=== PATIENT | female | born 1995 | race African-American/Black ===

== ENCOUNTER 2017-10-06 02:46 | Inpatient (IN) | payer OTHER ==
[~2017-10-06 02:46] MED LIST: MOTRIN800 MG PO; PRENATAL TABLE1 EAC3 PO
[2017-10-06 03:01] LABS: BASOPHIL (%) 0.5 % (0-1); BASOPHIL COUNT 0.1 K/uL (0-0.1); EOSINOPHIL (%) 0.6 % (0-5); EOSINOPHIL COUNT 0.1 K/uL (0-0.3); HEMATOCRIT 42.3 % (36.0-46.0); HEMOGLOBIN 15.7 G/DL (11.9-15.5); IMMATURE GRANULOCYTE (%) 0.7 % (0.0-0.7); LYMPHOCYTE (%) 39.2 % (15-42); LYMPHOCYTE COUNT 4.9 K/uL (1.0-2.8); MCH 34.5 PG (29.0-34.0); MCHC 37.1 G/DL (30.0-36.0); MONOCYTE (%) 5.4 % (3-12); MONOCYTE COUNT 0.7 K/uL (0-0.8); NEUTROPHIL (%) 53.6 % (45-76); NEUTROPHIL COUNT 6.8 K/uL (1.8-6.4); RED BLOOD COUNT 4.55 M/uL (3.80-5.20); WHITE BLOOD COUNT 12.6 K/uL (4.1-10.2)
[2017-10-06 03:10] LABS: AMYLASE 75 IU/L (1-118); CHLORIDE 109 mEq/L (99-109); POTASSIUM 3.6 mEq/L (3.7-5.4); SODIUM 140 mEq/L (136-147)
[2017-10-06 03:12] LABS: GLUCOSE 102 mg/dL (70-99)
[2017-10-06 03:15] LABS: SERUM ETHYL ALCOHOL 181 mg/dL
[2017-10-06 03:16] LABS: CREATININE 0.9 mg/dL (0.6-1.3); GFR ESTIMATE (CALCULATED) > 59 mL/min/
[2017-10-06 03:17] LABS: UREA NITROGEN (BUN) 9 mg/dL (9-23)
[2017-10-06 03:19] LABS: LIPASE 29 U/L (1.0-51.0)
[2017-10-06 03:25] LABS: QUANTITATIVE HCG < 4.0 MIU/ML
[2017-10-06 05:00] LABS: PLAT.SUFFICIENCY ADEQUATE; PLATELET COUNT 306 K/uL (156-360)
[2017-10-06 11:30] LABS: APPEARANCE CLEAR ((CLEAR)); BILIRUBIN NEGATIVE; BLOOD MODERATE; COLOR YELLOW ((YELLOW)); GLUCOSE (STRIP) NEGATIVE; KETONES 20; LEUKOCYTES NEGATIVE; NITRITE NEGATIVE; PROTEIN (STRIP) 30; SPECIFIC GRAVITY 1.049 (1.000-1.030)
[2017-10-06 11:35] LABS: BACTERIA NONE SEEN /HPF; EPITHELIAL CELLS 1+ /HPF; MUCUS TRACE /LPF; RED BLOOD CELLS 30-40 /HPF (0-5); UCUL ADDED? NO; WHITE BLOOD CELLS 0-5 /HPF (0-5)
[2017-10-06 11:48] LABS: AMPHETAMINE NEGATIVE (500 ng/mL); BARBITURATES NEGATIVE (200 ng/mL); METHADONE NEGATIVE (200 ng/mL); METHAMPHETAMINE NEGATIVE (500 ng/mL); OPIATES (MORPHINE) NEGATIVE (100 ng/mL); OXYCODONE NEGATIVE (100 ng/mL); PHENCYCLIDINE NEGATIVE (25 ng/mL); THC CANNABINOIDS PRESUMPTIVE POSITIVE (50 ng/mL); TRICYCLIC ANTIDEPRESSANTS NEGATIVE (300 ng/mL)
[2017-10-06 11:49] LABS: BENZODIAZEPINES PRESUMPTIVE POSITIVE (150 ng/mL); BUPRENORPHINE NEGATIVE (10 ng/mL); COCAINE NEGATIVE (150 ng/mL); PROPOXYPHENE NEGATIVE (300 ng/mL)
[2017-10-06 12:21] LABS: BENZODIAZEPINES, URINE SCREEN Negative (200 ng/mL)
[2017-10-06 17:01] VITALS: BP 122/58
[2017-10-06 20:36] VITALS: BP 111/58
[2017-10-06 23:52] VITALS: BP 103/51
[2017-10-07 03:45] VITALS: BP 102/53; BP 116/61
[2017-10-07 06:13] LABS: HEMATOCRIT 35.5 % (36.0-46.0); HEMOGLOBIN 12.6 G/DL (11.9-15.5); MCH 32.7 PG (29.0-34.0); MCHC 35.5 G/DL (30.0-36.0); MCV 92.2 FL (83-99); PLATELET COUNT 285 K/uL (156-360); RBC DIS.WIDTH-CV 12.2 % (11.8-14.6); RBC DIS.WIDTH-SD 40.9 % (39-53); RED BLOOD COUNT 3.85 M/uL (3.80-5.20); WHITE BLOOD COUNT 10.4 K/uL (4.1-10.2)
[2017-10-07 06:35] LABS: ALBUMIN 3.3 G/DL (3.2-4.8); ALKALINE PHOSPHATASE 51 IU/L (3-129); ALT (GPT) 83 IU/L (3-49); AST (GOT) 62 IU/L (2-34); CHLORIDE 108 MEQ/L (99-109); CREATININE 0.7 MG/DL (0.6-1.3); GFR ESTIMATE (CALCULATED) > 59 mL/min/; GLUCOSE 87 mg/dL (70-99); POTASSIUM 3.7 MEQ/L (3.7-5.4); SODIUM 139 MEQ/L (136-147); TOTAL BILIRUBIN 1.2 MG/DL (0.0-1.0); TOTAL PROTEIN 5.8 G/DL (6.4-8.3); UREA NITROGEN (BUN) 8 mg/dL (9-23)
[2017-10-07 08:18] VITALS: BP 114/46
[2017-10-07 11:18] VITALS: BP 117/61
[2017-10-07] MEDS ORDERED: HYDROCODON-ACE1 EAC7 PO (14:54)
[2017-10-07] MEDS ORDERED: DOCUSATE SODIU100 MG PO (14:54)
== END 2017-10-07 16:34 | disposition home or self-care (01) | DRG 605 ==
LOC: TRA 02:46 → 3EAST 14:46 → EDOF 14:46 → ENRESERV 14:52 → 3EAST 16:04
PROVIDERS: Emergency Medicine; Thoracic Surgery (Cardiothoracic Vascular Surgery)
DX: S30.1XXA Contusion of abdominal wall, initial encounter (principal); W22.11XA Striking against or struck by driver side automobile airbag, initial encounter; V89.2XXA Person injured in unspecified motor-vehicle accident, traffic, initial encounter; M25.511 Pain in right shoulder; R06.02 Shortness of breath; R07.89 Other chest pain; F10.129 Alcohol abuse with intoxication, unspecified; Y90.6 Blood alcohol level of 120-199 mg/100 ml; F32.9 Major depressive disorder, single episode, unspecified; F43.20 Adjustment disorder, unspecified; E66.3 Overweight
CPT/HCPCS: 70450; 71045; 71260; 72125; 72129; 72132; 74177; 80048; 80053; 81003; 82150; 83690; 84702; 84999; 85025; 85027; 86850; 86900; 86901; 90832; 93005; G0480; J1630; J1644; J2060; J2405; J3010; J7030; J7042